=== PATIENT | male | born 1945 | race African-American/Black ===

== ENCOUNTER → 2016-05-12 | Outpatient (CLI) | payer MEDICARE, OTHER ==
--- NOTE | 2016-05-12 15:57 | CT ---
EXAMINATION TYPE: CT abdomen pelvis wo con DATE OF EXAM: 05/12/2016 3:32 PM COMPARISON: NONE HISTORY: Other fecal abnormalities CT DLP: 1262 mGycm Automated exposure control for dose reduction was used. TECHNIQUE: Helical acquisition of images was performed from the lung bases through the pelvis. FINDINGS: LUNG BASES: The heart is markedly enlarged. LIVER/GB: No significant abnormality is appreciated. PANCREAS: No significant abnormality is seen. SPLEEN: No significant abnormality is seen. ADRENALS: No significant abnormality is seen. KIDNEYS: There is bilateral mild hydronephrosis and hydroureter to the level of the bladder with blad william wall thickening suggestive of cystitis. No calcification seen. However, there is severe enlargeme nt of the prostate gland. Abnormal soft tissue density extending along the posterior margin of the bl adder likely is related to extrinsic compression rather than bladder lesion but should be correlated clinically for hematuria. Direct visualization as clinically warranted given the severe enlargement o f the prostate. Hypodensity in the anterior cortex of the right kidney measures 6 mm and too small to characterize by noncontrast technique. ADENOPATHY: None visualized. OSSEOUS STRUCTURES: Hypertrophic changes of the spine are noted. BOWEL: Bowel gas pattern is nonspecific. Retained fecal debris throughout the colon with evidence of diverticulosis. No CT evidence of diverticulitis. OTHER: A lateral hydrocele suspected.. There are fat-containing inguinal hernias. No free fluid or fr ee air. Atherosclerotic change aorta with no aneurysm. IMPRESSION: BILATERAL MILD HYDRONEPHROSIS AND HYDROURETER TO LEVEL THE BLADDER. THERE IS BLADDER WALL THICKENING COMPATIBLE CYSTITIS. THERE IS SEVERE ENLARGEMENT OF THE PROSTATE. THERE IS A POSTERIOR SOFT TISSUE DE NSITY ALONG THE POSTERIOR MARGIN OF THE BLADDER WHICH MAY REPRESENT EXTRINSIC COMPRESSION VERSUS INTR ALUMINAL MASS. FAVOR PROSTATE COMPRESSION BUT GIVEN THE SEVERITY OF THE ENLARGEMENT OF PROSTATE RECOM MEND CORRELATION CLINICALLY AND IF IS NECESSARY WITH DIRECT VISUALIZATION. 2. SEVERE CARDIOMEGALY
== END | disposition home or self-care (01) ==
LOC: RADCTMAIN 12:26
PROVIDERS: ATTEND Family Medicine
DX: N13.30 Unspecified hydronephrosis (principal); N32.89 Other specified disorders of bladder; N40.0 Benign prostatic hyperplasia without lower urinary tract symptoms
CPT/HCPCS: 74176

== ENCOUNTER → 2016-05-26 | Outpatient (CLI) | payer MEDICARE, OTHER ==
[2016-05-26 15:55] LABS: Blood Urea Nitrogen 15 mg/dL (9-20); Non-African American GFR(MDRD) >60 (>60 ml/min/1.73 sqM)
--- NOTE | 2016-05-26 17:21 | CT ---
EXAMINATION TYPE: CT chest w con DATE OF EXAM: 05/26/2016 4:27 PM COMPARISON: 10/16/2015 HISTORY: 71-year-old male with Aortic aneurysm. TECHNIQUE: Contiguous axial scanning of the chest after the administration of 100 mL of Omnipaque 300 . Coronal/sagittal reconstructions performed. CT DLP: 611.00mGycm. Automatic exposure control utilized for a dose reduction. FINDINGS: Heart is mildly enlarged without pericardial effusion. Coronary vessel calcifications are present and are remarkable for coronary artery disease. - On the current exam, aortic root is measured at 4.1 cm on axial series. - The ascending aorta is me asured up to 4.4 cm versus 4.5 cm, previously when remeasured by the current radiologist in the same location. This is not felt to have significantly changed in the interval. - There is conventional arterial vessel branching anatomy. - Borderline aneurysm upper descending thoracic aorta at 3.1 cm and tortuosity of the descending thor acic aorta. - The lower descending thoracic aorta is ectatic at 2.8 cm. No thoracic lymphadenopathy. Mild dependent atelectasis at the lung bases. No pleural effusion or consolidation. There is respirat ory motion limiting evaluation for small pulmonary nodules. Redemonstrated 1.4 cm hypodense lesion medial right kidney too small for accurate CT characterization , likely cyst. Bones: Mild multilevel degenerative disc disease throughout the thoracic spine. IMPRESSION: 1. Mild cardiomegaly. 2. Mildly aneurysmal aortic root at 4.1 cm and aneurysm of the ascending aorta at 4.4 cm, not signifi cantly changed from prior. 3. Borderline aneurysm upper descending thoracic aorta at 3.1 cm and ectasia of the lower descending thoracic aorta at 2.8 cm.
== END | disposition home or self-care (01) ==
LOC: RADCTMAIN 14:56
PROVIDERS: ATTEND Internal Medicine Cardiovascular Disease
DX: I71.9 Aortic aneurysm of unspecified site, without rupture (principal); I71.2 Thoracic aortic aneurysm, without rupture; I77.810 Thoracic aortic ectasia; I51.7 Cardiomegaly
CPT/HCPCS: 82565; 84520; 71260; 36415; Q9967

== ENCOUNTER → 2017-05-20 | Outpatient (CLI) | payer MEDICARE, OTHER ==
[2017-05-20 15:48] LABS: Anion Gap 8 mmol/L; Blood Urea Nitrogen 19 mg/dL (9-20); Carbon Dioxide 29 mmol/L (22-30); Chloride 105 mmol/L (98-107); Potassium 3.9 mmol/L (3.5-5.1); Sodium 142 mmol/L (137-145)
--- NOTE | 2017-05-20 17:02 | CT ---
CT CHEST FOR PULMONARY EMBOLISM. EXAMINATION TYPE: CT angio chest DATE OF EXAM: 05/20/2017 INDICATION: Aortic anuerysm. CT DLP: 410 mGycm, Automated exposure control for dose reduction was used. CONTRAST: Patient injected with 100 mL of Omnipaque 350. COMPARISON: NONE TECHNIQUE: CT of the chest is performed on a spiral scan at 2 mm thick sections. Study is performed with intravenous contrast timed for evaluation for pulmonary embolism. This will limit additional po rtions of the evaluation. 3-D MIP images reconstructed by the technologist are reviewed on the compu ter in the coronal and sagittal planes. FINDINGS: No persistent filling defects are evident to suggest an acute pulmonary embolism. No mediastinal or hilar adenopathy enlarged by CT criteria is evident. The ascending aorta diameter at the level of the main pulmonary artery is 4.3 cm. The main pulmonary artery diameter at the bifur cation is 3.9 cm. Lung windows are clear. Limited CT sections are obtained through the upper abdomen. Small cystlike areas are within the left kidney. IMPRESSIONS: 1. No acute pulmonary embolism. 2. Ascending thoracic aortic aneurysm of 4.3 cm. 3. This exam is stable from the comparison of 05/26/2016.
== END | disposition home or self-care (01) ==
LOC: RADCTMAIN 15:13
PROVIDERS: ATTEND Internal Medicine Cardiovascular Disease
DX: I71.2 Thoracic aortic aneurysm, without rupture (principal)
CPT/HCPCS: 80051; 82565; 84520; 71275; 36415; Q9967

== ENCOUNTER → 2019-05-15 | Outpatient (CLI) | payer MEDICARE, OTHER ==
--- NOTE | 2019-05-15 13:29 | CT ---
EXAMINATION TYPE: CT angio chest DATE OF EXAM: 05/15/2019 COMPARISON: 05/20/2017 HISTORY: Follow up aneurysm. CT DLP: 267.8 mGycm CONTRAST: CTA thoracic aorta with 3-D reconstruction is performed and with IV Contrast, patient injected with 1 00 mL of Isovue 370. Contrast CTA of the thoracic aorta was performed from the lung apex through the upper abdomen. 3D re construction imaging obtained at a separate workstation. CT Chest: THORACIC AORTA: Ascending thoracic aortic aneurysm measures 4.2 cm AP dimension versus 4.3 cm previou sly. Mild atheromatous changes seen. There is no evidence for dissection or periaortic collection. LUNGS: The lungs are clear and free of infiltrate or atelectasis. No pulmonary nodule or mass is det ected. No pleural effusion or CT evidence of interstitial lung disease. MEDIASTINUM: No evidence for mediastinal hematoma. The heart is not enlarged. No evidence for med iastinal mass or adenopathy. HILAR STRUCTURES: No evidence for mass. No hilar adenopathy is appreciated. OTHER: No significant abnormality. IMPRESSION- Essentially stable ascending thoracic aortic aneurysm.
== END | disposition home or self-care (01) ==
LOC: RADCTMAIN 10:11
PROVIDERS: ATTEND Internal Medicine Cardiovascular Disease
DX: I71.2 Thoracic aortic aneurysm, without rupture (principal)
CPT/HCPCS: 82565; 84520; 71275; 36415; Q9967